=== PATIENT | male | born 1970 | race Caucasian/White ===

== ENCOUNTER 2019-02-25 09:01 | Inpatient (IN) | payer BC ==
[2019-02-25] VITALS (14 sets, daily range): BP systolic 111–147; BP diastolic 68–96
[~2019-02-25] VITALS: Ht 182.9 cm; Wt 99.1 kg
[~2019-02-25 09:01] MED LIST: LISI-334 PO; MECL12.52 PO
--- NOTE | 2019-02-25 10:40 | NUR ---
Patient brought to hospital ICU room 109 via ambulance by carole from [facility] with symptoms of CVA.
--- NOTE | 2019-02-25 11:46 | PDOC2 ---
NEUROLOGY CONSULT Date of Admission Date of Admission DATE: 02/25/19 TIME: 11:46 Reason for Consult Reason for Consult: Stroke Referring Physician Referring Physician: Dr. Sotelo Source Source: Caregiver (), Chart review, Patient History of Present Illness History of Present Illness The patient is a 48-year-old right-handed male with history of hypertension who woke up about 4:30 AM, took a shower, kissed his nolan at 5 AM. Then he was downstairs and came back and was unable to communicate with his . He looked pale and concern. He kept waving with his right hand. He was able to communicate that he wanted her to call 911. The patient was taken to [facility]. He underwent CT of the head, CT angiogram, Alteplace, and then was transferred here, neurology was not consulted during these decision-making. He has not improved in his speech since the alteplase. He is able to communicate that there is no headache. There is no prior history of stroke, seizure, or head injury. He has not been under any particular stress. I see that he had a CT of the head and cervical spine in 2012 regarding dizziness. 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 Full 14-point review of systems is negative. Physical Exam Physical Examination General: Well-developed, well-nourished white male in no acute distress HEENT: Normocephalic and�atraumatic. Temporal arteries�pulsatile and nontender.� Neck: Supple without bruit, no meningismus� Musculoskeletal: Stability:�see neurologic. Gait exam:�see neurologic. Tone:�see neurologic.�Strength:�see neurologic.� Neurological: Mental Status: orientation, memory, attention span/concentration, language, fund of knowledge: expressive aphasia with component of apraxia, follows some commands, but not complex ones. Cranial Nerves:�Pupils equal and reactive to light, extraocular movements are�intact, visual barrientos are full to confrontation. Facial sensation is normal. There is no facial asymmetry. Vestibulo-ocular reflex is intact. Palate elevates and tongue protrudes in midline. All other cranial related problems are negative except as mentioned before.�Reflexes:�2+ and symmetric with flexor plantar responses. Motor:�5/5 strength with normal tone and bulk. Coordination:�Finger-nose finger and vmis-kb-clax testing are normal. Rapid alternating movements and fine finger movements are intact. Gait:�Normal, including tandem. Sensory:�Normal pinprick, vibration, light touch, proprioception.� Vitals VITALS Vital Signs Date Time Temp Pulse Resp B/P (MAP) Pulse Ox O2 Delivery O2 Flow Rate FiO2 02/25/19 11:00 97.9 77 16 135/91 (106) 95 Room Air 97.[address] CODE STROKE HEAD WO History: Slurred speech Comparison: April 18, 2013 MRI brain exam and December 25, 2009 CT head exam Technique: Noncontrast CT imaging was performed of the head. Exposure: One or more of the following individualized dose reduction techniques were utilized for this examination: 1. Automated exposure control 2. Adjustment of the mA and/or kV according to patient size 3. Use of iterative reconstruction technique. Findings: No acute intracranial hyperdense hemorrhage is identified. There is no midline shift or intra-axial mass effect. Ventricular size is within normal limits. There is now focus of low density of the posterior right cerebellum about 1.1 cm in size. There is questionable subtle focus of lower density of the left brianna, difficult to evaluate given artifact in this region. Impression: 1. There is no evidence of acute intracranial hemorrhage. 2. There is focus of lower density of the posterior right cerebellum new since the previous exams. Features are more suggestive of chronic infarct although could be due to late subacute infarct. There is a questionable subtle focus of lower density of the left brianna which could be due to site of more recent ischemia although otherwise difficult to evaluate, better characterized by MRI if clinically needed. Findings discussed with GIOVANNI CHARLES at 02/25/2019 7:02 AM. FOR INTERNAL CODING PURPOSES RESULT CODE: (C) Electronically signed by: Dinorah Pearson MD (02/25/2019 7:04 AM) [facility] DICTATED AND SIGNED BY: DINORAH PEARSON MD DATE: 02/25/19703 CC: GIOVANNI CHARLES DO; RONALD WHITTAKER MD ~ CHEST AP ONLY History: Stroke Comparison: None. Findings: Single view of the chest is submitted. There is no dependent pleural fluid or pneumothorax. Heart size is within normal limits. There is mild perihilar opacity. Impression: 1. No lobar infiltrate. There is mild perihilar opacity possible mild central vascular congestion. Electronically signed by: Dinorah Pearson MD (02/25/2019 7:38 AM) [facility] DICTATED AND SIGNED BY: DINORAH PEARSON MD DATE: 02/25/19737 CC: GIOVANNI CHARLES DO; RONALD WHITTAKER MD ~ CTA head and neck History: Slurred speech, right hand weakness, stroke Technique: After bolus of intravenous contrast, volumetric CT data acquisition was acquired of the head and neck. Multiplanar reconstruction images to include MIP and 3-D reconstruction images are submitted. Exposure: One or more of the following individualized dose reduction techniques were utilized for this examination: 1. Automated exposure control 2. Adjustment of the mA and/or kV according to patient size 3. Use of iterative reconstruction technique. Comparison: Head CT the same day Any determination of stenosis is based on NASCET criteria. CTA head: Findings: There is mild motion. There is some venous contamination. Both vertebral arteries constitute the basilar artery, slightly dominant left vertebral artery. There is visualization of segments of bilateral PICAs, left AICA, bilateral superior cerebellar arteries. Right AICA is not well-visualized. There is patent left posterior communicating artery, hypoplastic left A1 segment is not well-visualized more distally. No significant right posterior communicating artery is visualized. Anterior communicating artery is not clearly identified. There is visualization of segments of the anterior, middle, posterior cerebral arteries bilaterally. No focal filling defect is identified of the larger intracranial vessels. No significant intracranial aneurysm is identified. There is small left maxillary sinus mucous retention cyst. Impression: 1. No focal filling defect is identified of the larger intracranial vessels. Right AICA is not well-visualized on this exam although may be small in caliber. Neck CTA: Findings: There is some motion degradation. Visualized distal ascending thoracic aorta is ectatic about 3.9 cm, not fully evaluated. There is a shared origin of the brachiocephalic and left common carotid arteries. No significant stenosis or dissection flap is identified of the cervical arterial vasculature. There is visualization of the cervical vertebral arteries bilaterally. Impression: 1. Exam is somewhat degraded by motion. There is no convincing dissection flap or stenosis of the cervical arterial vasculature. 2. There is ectatic distal ascending thoracic aorta about 3.9 cm, thoracic aorta not fully evaluated. Assessment/Plan Assessment/Plan Impression: Acute onset of expressive aphasia, also has some apraxia, no motor findings for me although some ataxia was observed in the emergency department. This would localize to a small left frontal infarct. Also consider nonorganic etiologies. Recommendations: Has had CT angiogram, no need to repeat imaging studies of the arteries. MRI of the brain, reasonable to wait until tomorrow morning, 24 hours after alteplase, to also rule out post-alteplace hemorrhage Rehabilitation modalities Aspirin na�ve, will start this tomorrow after hemorrhage ruled out. Also see stroke orders. Discussed with patient and his . Thank you for letting me help with the patient's care. RAUDEL MCKEON MD Feb 25, 2019 11:46
[2019-02-25] MEDS ORDERED: ONDANSETRON PF 4 MG/2 ML VIAL. IV PRN (12:45)
[2019-02-25] MEDS ORDERED: ACETAMINOPHEN 325 MG TABLET. PO PRN (12:45)
[2019-02-25] MEDS ORDERED: LABETALOL 20 MG/4 ML DISP.SYRIN. IVP PRN (12:45)
[2019-02-25] MEDS ORDERED: ACETAMINOPHEN 325 MG SUPP.RECT. PR PRN (12:45)
--- NOTE | 2019-02-25 18:08 | NUR ---
Patient is forming sentences more as the day goes on. He can now ask, "can I go to the bathroom" and "what time are you out" and says "thank you" with very little difficulty.
--- NOTE | 2019-02-25 19:00 | NUR ---
Patient able to speak in sentences with slurred speech and expressive aphasia. When answering questions, patient is unable to verbalize specific words but when asked to choose the correct answer verses another similar word, patient is able to nod his head at the correct answer. Will continue to monitor hourly per Code Stroke protocol (until 0902/26/19) and notify Neuro with any decompensation. Addendum: 02/25/19 at 1919 by FERNANDA LOW RN Amended: Links added.
[2019-02-26] VITALS (14 sets, daily range): BP systolic 104–141; BP diastolic 72–91
[2019-02-26 05:01] LABS: CHOLESTEROL/HDL RATIO 6.3
--- NOTE | 2019-02-26 08:30 | PDOC ---
PROGRESS NOTES Assessment Acute onset of expressive aphasia, also has some apraxia, no motor findings for me although some ataxia was observed in the emergency department. This would localize to a small left frontal infarct. Also consider nonorganic etiologies. Hyperlipidemia Plan Await MRI of the brain Await echo Rehabilitation modalities Start aspirin after hemorrhage ruled out. Transfer to [address] [place] [address] if no bleed Statin Subjective Notes improvement, no pain Objective Vital Signs Date Time Temp Pulse Resp B/P (MAP) Pulse Ox O2 Delivery O2 Flow Rate FiO2 02/26/19 08:00 98.6 75 13 133/84 (100) 97 Room Air 98.6 Intake and Output 02/26/19 06:59 Intake Total 320 ml Output Total 1550 ml Balance -1230 ml Intake Oral 320 ml Output Urine Total 1550 ml PHYSICAL EXAM Alert. Oriented to time, place and person. Still some expressive aphasia, dysnomia PERRL. EOMI. CN: no focal findings. Muscle tone: normal. Muscle strength: 5/5 DTR: 2+ Plantar reflex: flexor Gait: not examined in bed. Sensory exam: no abnormal findings. No cerebellar signs elicited. Review of Relevant I have reviewed the following items svitlana (where applicable) has been applied. Labs Laboratory Tests Test 02/26/19 04:30 Triglycerides Level 172 mg/dL (0-150) Cholesterol Level 209 mg/dL (0-200) LDL Cholesterol, Calculated 142 mg/dL (0-100) VLDL Cholesterol, Calculated 34 mg/dL (0-40) Non-HDL Cholesterol Calculated 176 mg/dL (0-129) HDL Cholesterol 33 mg/dL (40-60) Cholesterol/HDL Ratio 6.3 Laboratory Tests Test 02/26/19 04:30 Triglycerides Level 172 mg/dL (0-150) Cholesterol Level 209 mg/dL (0-200) LDL Cholesterol, Calculated 142 mg/dL (0-100) VLDL Cholesterol, Calculated 34 mg/dL (0-40) Non-HDL Cholesterol Calculated 176 mg/dL (0-129) HDL Cholesterol 33 mg/dL (40-60) Cholesterol/HDL Ratio 6.3 Medications Current Medications Labetalol HCl (Normodyne Iv Push) 10 mg PRN Q10MIN PRN IVP HYPERTENSION; Start 02/25/19 at 12:45 Nicardipine HCl 50 mg/Sodium Chloride 250 ml @ 25 mls/hr CONT PRN PRN IV ELEVATED BP, SEE COMMENTS; Start 02/25/19 at 12:45 Acetaminophen (Tylenol) 650 mg PRN Q6HRS PRN PO MILD PAIN / TEMP; Start 02/25/19 at 12:45 Acetaminophen (Tylenol Supp) 325 mg PRN Q6HRS PRN MD MILD PAIN / TEMP; Start 02/25/19 at 12:45 Ondansetron HCl (Zofran) 4 mg PRN Q6HRS PRN IV NAUSEA/VOMITING; Start 02/25/19 at 12:45 Active Scripts Active Reported Meclizine Hcl 12.5 Mg Tablet 12.5 Mg PO Lisinopril 20 Mg Tablet 20 Mg PO Vitals/I & O Vital Sign - Last 24 Hours 02/25/19 02/25/19 02/25/19 02/25/19 11:00 12:00 13:00 14:00 Temp 97.9 97.9 Pulse 77 80 85 73 Resp 16 16 16 B/P (MAP) 135/91 (106) 138/86 (103) 147/96 (113) 139/89 (106) Pulse Ox 95 96 94 96 O2 Delivery Room Air Room Air Room Air Room Air 02/25/19 02/25/19 02/25/19 02/25/19 15:00 16:00 17:00 18:00 Temp 99.0 99.0 Pulse 69 84 73 78 Resp 16 16 16 16 B/P (MAP) 143/88 (106) 138/86 (103) 136/81 (99) 140/79 (99) Pulse Ox 96 97 98 98 O2 Delivery Room Air Room Air Room Air Room Air 02/25/19 02/25/19 02/25/19 02/25/19 19:00 20:00 20:00 21:00 Temp 97.9 97.9 Pulse 76 72 70 Resp 18 13 14 B/P (MAP) 144/89 (107) 139/81 (100) 114/80 (91) Pulse Ox 97 97 94 O2 Delivery Room Air Room Air Room Air Room Air 02/25/19 02/25/19 02/25/19 02/25/19 22:00 23:00 23:59 23:59 Temp 98.7 98.7 Pulse 65 65 67 Resp 14 14 14 B/P (MAP) 117/78 (91) 111/68 (82) 139/78 (98) Pulse Ox 94 95 96 O2 Delivery Room Air Room Air Room Air Room Air 02/26/19 02/26/19 02/26/19 02/26/19 01:00 02:00 03:00 04:00 Pulse 68 66 71 Resp 14 12 14 B/P (MAP) 141/86 (104) 116/83 (94) 104/72 (83) Pulse Ox 96 96 97 O2 Delivery Room Air Room Air Room Air Room Air 02/26/19 02/26/19 02/26/19 02/26/19 04:00 05:00 06:00 07:00 Temp 98.0 98.0 Pulse 69 67 69 70 Resp 16 16 16 20 B/P (MAP) 119/85 (96) 138/87 (104) 127/81 (96) 120/76 (91) Pulse Ox 97 100 97 98 O2 Delivery Room Air Room Air Room Air Room Air 02/26/19 02/26/19 07:57 08:00 Temp 98.6 98.6 Pulse 75 Resp 13 B/P (MAP) 133/84 (100) Pulse Ox 97 O2 Delivery Room Air Room Air Intake and Output 02/25/19 02/25/19 02/26/19 14:59 22:59 06:59 Intake Total 20 ml 200 ml 100 ml Output Total 0 ml 750 ml 800 ml Balance 20 ml -550 ml -700 ml RAUDEL MCKEON MD Feb 26, 2019 08:30
--- NOTE | 2019-02-26 09:15 | HP ---
ADMIT DATE: 02/25/2019 HISTORY OF PRESENT ILLNESS: The patient is a 48-year-old male patient who was brought to the Emergency Room of [facility] via emergency medical service personnel with a code stroke. He apparently last known well was the night before at 9:30 p.m. He woke up at around 4:30 a.m., took a shower and got ready for work. He kissed his nolan around 5:00 a.m. At that time, he was talking without difficulty. He went downstairs and within several minutes he came back upstairs and turned on the bedroom light. The patient's spouse asked him what was going on and he was unable to speak to her. She stated that he looked pale and concerned. He was making repetitive motion with his hand and she asked him if he wanted her to 911 and he nodded his head yes. The patient has been unable to speak since that time. He was unable to answer questions for emergency medical service personnel; however, he was following direction. He was found to have right lower facial symmetry and decreased hand strength on the right side. By the time he arrived to the Emergency Room, he was unable to speak. He was alert and following commands. He was evaluated in the Emergency Room. His EKG showed that he was in sinus rhythm at 83 beats per minute, normal axis, no ST segment elevation. He had a CT scan of the head without contrast, which showed that there is no acute intracranial hyperdense hemorrhage identified. There is no midline shift or intra-axial mass effect. Ventricular size within normal limits. There is now focus of lower density of the posterior right cerebellum, about 1.1 cm in size. There is questionable subtle focus of lower density of the left bones, difficult to evaluate given artifact in this region. Chest x-ray showed there is no dependent pleural effusion or pneumothorax, heart size within normal limits. There is mild perihilar opacity. While in the Emergency Room, he also underwent CT angio of the head and neck, which basically showed no focal filling defects identified of the larger intracranial vessels. Right anterior communicating artery is not clearly identified due to visualization segmented anterior, middle and posterior cerebral arteries bilaterally. No focal filling defect is identified and no significant intracranial aneurysm is identified. He has small left maxillary sinus mucous retention cyst. CT angio of the neck showed that there is no convincing dissection flap or stenosis, cervical arterial vasculature is ectatic, ascending thoracic aorta about 3.9 cm, thoracic aorta not fully evaluated. Apparently, as he arrived within the window for TPA and his CT scan is negative, his initial NIH scale was 8 with significant aphasia and has no history of hemorrhagic stroke, has no history of bleeding disorder, no recent surgery. He is not on any blood thinners or antiplatelets. He was apparently treated with TPA and as per protocol the patient was transferred to [facility] ICU for further evaluation and to consult the neurologist. PAST MEDICAL HISTORY: Significant for hypertension. However, he denied any other medical problems. PAST SURGICAL HISTORY: Significant for a right ankle fracture status post open reduction and internal fixation. He also apparently has obstructive sleep apnea for which he underwent uvulopalatopharyngoplasty. ALLERGIES: According to him, he has no known drug allergies. MEDICATIONS: He apparently was on lisinopril 20 mg once a day and meclizine 12.5 mg once a day. FAMILY HISTORY: He has one older brother and one younger sister, both healthy. His mother is alive and has multiple stents in her heart. His father is alive and healthy. SOCIAL HISTORY: He is , has one daughter and a son. He never smoked. Drinks alcohol occasionally. He works as an industrial electrician journeyman. PHYSICAL EXAMINATION: GENERAL: On arrival to the Emergency Room, he looked well and was clearly in no apparent respiratory distress. No pallor, jaundice, cyanosis or thyromegaly. No jugular venous distention. No lower limb edema. VITAL SIGNS: His heart rate was 65, blood pressure 117/78, temperature was 98.7, respiratory rate was 14, and oxygen saturation was 96%. HEAD, EYES, EARS, NOSE AND THROAT: Normocephalic, atraumatic. NECK: Supple. HEART: Showed normal first and second heart sounds. No gallop, rub or murmur. CHEST: Clear to auscultation. No crepitation or rhonchi. ABDOMEN: Distended, soft, nontender. No guarding or rigidity. No organomegaly. Hernial orifice intact. Bowel sounds normal. NEUROLOGIC: He apparently was aphasic. Initially, when he arrived to the Emergency Room has right lower facial nerve weakness as well as right upper extremity weakness. Otherwise, cranial nerves are intact. He moves extremities without difficulty. He was unable to talk, but follows command. LABORATORY DATA: His lab work while at the Emergency Room of [facility] showed that his white cell count was 16,300, hemoglobin 15, hematocrit 44, MCV 191, and platelet count 243,000. His chemistry showed a serum sodium 139, potassium 3.9, chloride 103, bicarbonate 25, anion gap of 11, BUN 25, creatinine 1.4, estimated GFR was 54 mL per minute. Glucose 167, calcium 9. Total bilirubin, AST, ALT, alkaline phosphatase were normal. Total protein was 7.3, albumin 4.5. His prothrombin time, INR and aPTT were normal. Tox screen was negative. ASSESSMENT AND PLAN: In summary, this is a 48-year-old male patient who was transferred to [facility] ICU as he had cerebral infarction, new thrombosis of unspecified precerebral artery. He has received TPA and as per protocol he was transferred to [facility] to consult the neurologist and to repeat an MRI after receiving TPA to rule out the possibility of post-TPA hemorrhage. GREER NOWAK MD DR: BOB/iron JOB#: [id number] / [id number]
--- NOTE | 2019-02-26 09:18 | PN ---
DATE: SUBJECTIVE: The patient is resting, slightly propped up in bed, no apparent distress. He is awake, alert, responding appropriately. He is able to talk, although he continued to have occasional episodes of difficulty finding words; however, he has been able to move his extremities without difficulty. He was seen by Dr. Padgett, who recommended doing an MRI and if it is negative, he will be able to transfer to the floor to start the process of rehabilitation. He will be started on aspirin after the MRI if it did not show any evidence of bleeding. OBJECTIVE: GENERAL: When I saw him this morning, he looked well and was clearly in no apparent respiratory distress. VITAL SIGNS: Her heart rate was 75, blood pressure was 133/84, temperature was 98.6, respiratory rate was 18 and oxygen saturation was 97%. HEAD, EYES, EARS, NOSE AND THROAT: Showed normocephalic, atraumatic. NECK: Supple. No pallor, jaundice, cyanosis or thyromegaly. No jugular venous distension. . HEART: Showed normal first and second heart sounds. No gallop or murmur. CHEST: Clear to auscultation. No crepitation or rhonchi. NEUROLOGIC: He is awake, alert, responding appropriately. All his cranial nerves are intact. He moves extremities without difficulty. No lower limb edema. LABORATORY DATA: His fasting lipid profile showed serum triglycerides 172. Total cholesterol was 129, LDL was 142, VLDL was 34, and HDL was 33. The ratio was 6.3. ASSESSMENT AND PLAN: In summary, this is a 48-year-old male patient who presented with acute expressive aphasia and some apraxia and apparently has also some ataxia observed in the Emergency Room. He has hyperlipidemia and history of hypertension before. He will have an MRI done this morning and if there is no evidence of bleeding, we will start on aspirin, continue with statin as well as continue with his lisinopril as well meclizine. GREER NOWAK MD DR: BOB/iron JOB#: [id number] / [id number]
--- NOTE | 2019-02-26 11:09 | NUR ---
SS following for discharge planning. SS reviewed pt chart. Pt is from home with spouse and is currently on room air. No discharge needs noted at this time. SS will continue to follow for discharge planning.
--- NOTE | 2019-02-26 11:31 | RAD ---
BRAIN W/O CONTRAST History: Posterior PA. Technique: Multiplanar, multi sequential MR imaging was performed of the brain without contrast. Comparison: Head CT February 25, 2019. Findings: Acute left MCA territory infarct involving the left lateral frontal lobe and perisylvian region. Mild local mass effect. No midline shift. There is evidence of petechial hemorrhaging. Chronic bilateral small cerebellar infarcts. No hydrocephalus. Minimal foci of T2/FLAIR hyperintensity within the hemispheric white matter, most often due to chronic microvascular ischemia. Imaged orbits are unremarkable. Small left maxillary sinus anteriorly is retention cyst. Left posterior maxillary sinus mucous retention cyst or polyp. Mastoid air cells are clear. Impression: 1. Acute left MCA territory infarct with petechial hemorrhage. 2. Chronic bilateral small cerebellar infarcts. 3. Left maxillary sinus disease. FOR INTERNAL CODING PURPOSES Critical result: Findings discussed with patient's nurse Cherelle at 02/26/2019 11:25 AM. RESULT CODE: (C) Electronically signed by: Roger Vieira DO (02/26/2019 11:28 AM) [id number]
--- NOTE | 2019-02-26 11:48 | CARD ---
MR#: [id number] Date of Study: 02/26/2019 Ordering Physician: RAUDEL MCKEON, Referring Physician: RAUDEL MCKEON, Tech: Avelina Sanchez [facility] APPROVED REPORT EXAM: Two-dimensional and M-mode echocardiogram with Doppler and color Doppler. Other Information Quality : AverageHR: 70bpm Rhythm : NSR INDICATION CVA/TIA 2D DIMENSIONS RVDd3.1 (2.9-3.5cm)Left Atrium(2D)3.4 (1.6-4.0cm) IVSd1.2 (0.7-1.1cm)Aortic Root(2D)3.3 (2.0-3.7cm) LVDd4.0 (3.9-5.9cm)LVOT Diameter2.1 (1.8-2.4cm) PWd1.0 (0.7-1.1cm)LVDs2.6 (2.5-4.0cm) FS (%) 34.7 %SV45.4 ml LVEF(%)64.4 (>50%) M-Mode DIMENSIONS Left Atrium(MM)3.46 (2.5-4.0cm)Aortic Root3.38 (2.2-3.7cm) Aortic Valve AoV Peak Guille.101.3cm/sAoV VTI20.0cm AO Peak GR.4.1mmHgLVOT VTI 17.06cm AO Mean GR.3mmHgAVA (VTI)2.90cm2 Mitral Valve MV E Qdxgzmjg70.0cm/sMV DECEL [id number] MV A Lelehhzg05.0cm/sE/A Ratio0.7 MV A [id number] TDI Lateral E' P. V12.16cm/sE/Lateral E'4.4 LEFT VENTRICLE The left ventricle is normal size. There is mild concentric left ventricular hypertrophy. The left ve ntricular systolic function is normal and the ejection fraction is within normal range. The Ejection Fraction is 60-65%. There is normal LV segmental wall motion. Transmitral Doppler flow pattern is Gra de I-abnormal relaxation pattern. RIGHT VENTRICLE The right ventricle is normal size. There is normal right ventricular wall thickness. The right ventr icular systolic function is normal. ATRIA The left atrium size is normal. The right atrium size is normal. Non-diagnostic agitated saline contr ast study. Not well visualized. AORTIC VALVE The aortic valve is normal in structure and function. The aortic valve is trileaflet. Doppler and Col or Flow revealed no significant aortic regurgitation. There is no significant aortic valvular stenosi s. There is no aortic valvular vegetation. MITRAL VALVE The mitral valve is normal in structure and function. There is no evidence of mitral valve prolapse. There is no mitral valve stenosis. Doppler and Color Flow revealed no mitral valve regurgitation note d. TRICUSPID VALVE The tricuspid valve is normal in structure and function. Doppler and Color Flow revealed no tricuspid valve regurgitation noted. There is no tricuspid valve prolapse or vegetation. There is no tricuspid valve stenosis. PULMONIC VALVE The pulmonic valve is not well visualized. GREAT VESSELS The aortic root is normal in size. The ascending aorta is normal in size. The IVC is normal in size a nd collapses >50% with inspiration. PERICARDIAL EFFUSION There is no evidence of significant pericardial effusion. Critical Notification Critical Value: No <Conclusion> The left ventricular systolic function is normal and the ejection fraction is within normal range. Th e Ejection Fraction is 60-65%. There is normal LV segmental wall motion. Non-diagnostic agitated saline contrast study. Not well visualized. Signed by : Rico Diane, Electronically Approved : 02/26/2019 11:48:16
--- NOTE | 2019-02-26 15:42 | PDOC2 ---
RAYMUNDO HOGAN CLERK TO JUSTICE 02/26/19 1542: CARDIAC CONSULT DATE OF CONSULT Date of Consult DATE: 02/26/19 TIME: 15:32 REASON FOR CONSULT Reason for Consult: Cryptogenic CVA REFERRING PHYSICIAN Referring Physician: Dayron SOURCE Source: Chart review, Patient HISTORY OF PRESENT ILLNESS HISTORY OF PRESENT ILLNESS This is a pleasant 48 yo male admitted for complains of stroke symptoms. Initially he was in [place] ED and transferred to [facility]. Yesterday morning he was gong to work and was at the gas station and was trying to pay with his credit card but could not swipe the card citing that he could not move his right arm. He then drove himself back [place] and was noted by his that he could not speak and also noted with right facial droop. After further imaging it was confirmed that he had a stroke. Presently he had his right arm strength back as well as his speech and no facial asymmetry. In the last 5 yrs he has been having vertigo. He told me that he actually has been seeing Dr. Horton at most likely for this reason. He denies having any past CAD, arrhythmias nor stroke or any autoimmune family hx nor any clotting disorders. He does have HTN and takes med for it but no statin nor ASA. 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 Denies any chest pain, SOA. No STOUT, palpitations. PAST MEDICAL HISTORY Cardiovascular: HTN, Hyperlipidemia Pulmonary: Other (BARB) CENTRAL NERVOUS SYSTEM: Other (No pertinent history) GI: No pertinent hx Heme/Onc: No pertinent hx Hepatobiliary: No pertinent hx Psych: No pertinent hx Musculoskeletal: Other (obese) Rheumatologic: No pertinent hx Infectious disease: No pertinent hx ENT: No pertinent hx Renal/: No pertinent hx Endocrine: No pertinent hx Dermatology: No pertinent hx PAST SURGICAL HISTORY Past Surgical History: Other (right ankle repair) FAMILY HISTORY Family History: Coronary Artery Disease (mother) SOCIAL HISTORY Smoke: No ALCOHOL: none Drugs: None Lives: with Family ALLERGIES ALLERGIES: Coded Allergies: No Known Drug Allergies (Unverified , 05/28/13) ROS Review of System 14 point ROS evaluated with pertinent positives noted per HPI PHYSICAL EXAM General: Alert, Oriented X3, Cooperative, No acute distress HEENT: Atraumatic, Mucous membr. moist/pink Lungs: Clear to auscultation, Normal air movement Heart: Regular rate (SR), Normal S1, Normal S2, No murmurs Abdomen: Soft, No tenderness Extremities: No cyanosis, No edema Skin: No breakdown, No significant lesion Neuro: Normal speech, Sensation intact Psych/Mental Status: Mental status NL, Mood NL MUSCULOSKELETAL: Osteoarthritic changes both hands VITALS/I&O VITALS/I&O: Vital Signs Date Time Temp Pulse Resp B/P (MAP) Pulse Ox O2 Delivery O2 Flow Rate FiO2 02/26/19 15:21 97.4 75 20 131/76 (94) 96 Room Air 97.4 I & O 02/25/19 02/25/19 02/26/19 15:00 23:00 07:00 Intake Total 20 ml 200 ml 100 ml Output Total 750 ml 0 ml 800 ml Balance -730 ml 200 ml -700 ml LABS Lab: Laboratory Tests Test 02/26/19 04:30 Triglycerides Level 172 mg/dL (0-150) H Cholesterol Level 209 mg/dL (0-200) H LDL Cholesterol, Calculated 142 mg/dL (0-100) H VLDL Cholesterol, Calculated 34 mg/dL (0-40) Non-HDL Cholesterol Calculated 176 mg/dL (0-129) H HDL Cholesterol 33 mg/dL (40-60) L Cholesterol/HDL Ratio 6.3 ASSESSMENT/PLAN ASSESSMENT/PLAN 1. 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 HTN: controlled 3. HLP 4. Hx of BARB: surgically corrected 5. Obesity Recommendations 1. ASA per neurology 2. Start on statin 3. Continue BP control 4. ESMER tomorrow at 8 AM, risks and benefits discussed and agreeable to proceed. 5. If above is unremarkable then will consider for MCOT. Will rule out cardioe mbolic source 6. Check TSH ARTUR CH MD 02/26/192043: CARDIAC CONSULT ASSESSMENT/PLAN ASSESSMENT/PLAN Patient seen and examined. Agree with [facility]'s assessment and plan. Agree with ESMER for definitive evaluation for cryptogenic stroke 2D echo showed normal LVF Neurology following Thank you for your consultation RAYMUNDO HOGAN APRN Feb 26, 2019 15:42 ARTUR CH MD Feb 26, 2019 20:44
[2019-02-26] MEDS ORDERED: ATORVASTATIN CALCIUM 10 MG TABLET. PO SCH (21:00)
[2019-02-26] MEDS ORDERED: ATORVASTATIN CALCIUM 20 MG TABLET PO SCH (21:00)
[2019-02-27] VITALS (9 sets, daily range): BP systolic 109–165; BP diastolic 53–98
[2019-02-27 05:10] LABS: BASO # 0.1 x10^3/uL (0.0-0.2); BASO % 1 % (0-3); EOS % 0 % (0-3); HEMATOCRIT 43.7 % (39.0-53.0); LYMPH # 2.5 x10^3/uL (1.0-4.8); LYMPH % 28 % (24-48); MEAN CORPUSCULAR HEMOGLOBIN 31 pg (25-35); MEAN CORPUSCULAR HGB CONC 34 g/dL (31-37); MEAN CORPUSCULAR VOLUME 90 fL (79-100); MONO # 0.8 x10^3/uL (0.0-1.1); MONO % 9 % (0-9); NEUT # 5.7 x10^3/uL (1.8-7.7); NEUT % 62 % (31-73); PLATELET COUNT 219 x10^3/uL (140-400); RED BLOOD COUNT 4.83 x10^6/uL (4.30-5.70); WHITE BLOOD COUNT 9.1 x10^3/uL (4.0-11.0)
[2019-02-27 05:46] LABS: ALBUMIN/GLOBULIN RATIO 1.2 (1.0-1.7); CALCIUM 9.1 mg/dL (8.5-10.1); CREATININE 1.3 mg/dL (0.7-1.3); GFR 58.9; POTASSIUM 4.1 mmol/L (3.5-5.1); TOTAL BILIRUBIN 0.7 mg/dL (0.2-1.0); TOTAL PROTEIN 7.4 g/dL (6.4-8.2)
[2019-02-27] MEDS ORDERED: LIDOCAINE 2% VISCOUS 15 ML SOLUTION. SWSW ONE (07:00)
[2019-02-27] MEDS ORDERED: LIDOCAINE 2% TOPICAL JELLY 30GM TUBE. TP ONE (07:00)
[2019-02-27] MEDS ORDERED: BENZOCAINE ONE 20% MUCOSAL SPRAY. MM (07:00)
[2019-02-27] MEDS ORDERED: IV RINGERS,LACTATED 1000ML 1,000 ML IV SCH (07:14)
[2019-02-27] MEDS ORDERED: PROCHLORPERAZINE 10 MG/2 ML VIAL. IV PRN (07:15)
[2019-02-27] MEDS ORDERED: MORPHINE SULFATE 2 MG/ML VIAL. IV PRN (07:15)
[2019-02-27] MEDS ORDERED: HYDROmorphone 2 MG/ML VIAL IV PRN (07:15)
[2019-02-27] MEDS ORDERED: ONDANSETRON PF 4 MG/2 ML VIAL. IV PRN (07:15)
[2019-02-27] MEDS ORDERED: fentaNYL PF VIAL 100 MCG/2 ML VIAL IV PRN ×2 (07:15)
[2019-02-27] MEDS ORDERED: PROPOFOL 20 ML IV ONE (07:51)
[2019-02-27] MEDS ORDERED: LIDOCAINE 2% PF 5 ML VIAL. ONE (07:51)
--- NOTE | 2019-02-27 08:44 | PDOC ---
PROGRESS NOTES Assessment Left frontal infarct, aphasia, no motor problems, likely embolic Small amount of petechial hemorrhage, status-post alteplase Hyperlipidemia Plan Await ESMER I delayed starting aspirin because of petechial hemorrhage, but will do so today Rehabilitation modalities, physical therapy does not leave he needs outpatient treatment, occupational and speech therapy do recommend outpatient treatment Statin Okay for discharge later today Follow-up with me in 2 months Subjective no complaints Objective Vital Signs Date Time Temp Pulse Resp B/P (MAP) Pulse Ox O2 Delivery O2 Flow Rate FiO2 02/27/19 07:10 97.4 75 15 165/87 93 Room Air 97.4 Intake and Output 02/27/19 06:59 Intake Total 0 ml Balance 0 ml Intake Oral 0 ml PHYSICAL EXAM Still groggy from ESMER PERRL. EOMI. CN: no focal findings. Muscle tone: normal. Muscle strength: moves all extremities DTR: 2+ Plantar reflex: flexor Gait: not examined in bed. Sensory exam: no abnormal findings. No cerebellar signs elicited. Review of Relevant I have reviewed the following items svitlana (where applicable) has been applied. Labs Laboratory Tests Test 02/26/19 04:30 02/27/19 04:20 Triglycerides Level 172 mg/dL (0-150) Cholesterol Level 209 mg/dL (0-200) LDL Cholesterol, Calculated 142 mg/dL (0-100) VLDL Cholesterol, Calculated 34 mg/dL (0-40) Non-HDL Cholesterol Calculated 176 mg/dL (0-129) HDL Cholesterol 33 mg/dL (40-60) Cholesterol/HDL Ratio 6.3 Thyroid Stimulating Hormone (TSH) 8.369 uIU/mL (0.358-3.74) White Blood Count 9.1 x10^3/uL (4.0-11.0) Red Blood Count 4.83 x10^6/uL (4.30-5.70) Hemoglobin 15.0 g/dL (13.0-17.5) Hematocrit 43.7 % (39.0-53.0) Mean Corpuscular Volume 90 fL (79-100) Mean Corpuscular Hemoglobin 31 pg (25-35) Mean Corpuscular Hemoglobin Concent 34 g/dL (31-37) Red Cell Distribution Width 14.0 % (11.5-14.5) Platelet Count 219 x10^3/uL (140-400) Neutrophils (%) (Auto) 62 % (31-73) Lymphocytes (%) (Auto) 28 % (24-48) Monocytes (%) (Auto) 9 % (0-9) Eosinophils (%) (Auto) 0 % (0-3) Basophils (%) (Auto) 1 % (0-3) Neutrophils # (Auto) 5.7 x10^3/uL (1.8-7.7) Lymphocytes # (Auto) 2.5 x10^3/uL (1.0-4.8) Monocytes # (Auto) 0.8 x10^3/uL (0.0-1.1) Eosinophils # (Auto) 0.0 x10^3/uL (0.0-0.7) Basophils # (Auto) 0.1 x10^3/uL (0.0-0.2) Sodium Level 140 mmol/L (136-145) Potassium Level 4.1 mmol/L (3.5-5.1) Chloride Level 103 mmol/L (98-107) Carbon Dioxide Level 26 mmol/L (21-32) Anion Gap 11 (6-14) Blood Urea Nitrogen 19 mg/dL (8-26) Creatinine 1.3 mg/dL (0.7-1.3) Estimated GFR (Cockcroft-Gault) 58.9 BUN/Creatinine Ratio 15 (6-20) Glucose Level 123 mg/dL (70-99) Calcium Level 9.1 mg/dL (8.5-10.1) Total Bilirubin 0.7 mg/dL (0.2-1.0) Aspartate Amino Transf (AST/SGOT) 19 U/L (15-37) Alanine Aminotransferase (ALT/SGPT) 31 U/L (16-63) Alkaline Phosphatase 64 U/L (46-116) Total Protein 7.4 g/dL (6.4-8.2) Albumin 4.0 g/dL (3.4-5.0) Albumin/Globulin Ratio 1.2 (1.0-1.7) Free Thyroxine 0.70 ng/dL (0.76-1.46) Laboratory Tests Test 02/27/19 04:20 White Blood Count 9.1 x10^3/uL (4.0-11.0) Red Blood Count 4.83 x10^6/uL (4.30-5.70) Hemoglobin 15.0 g/dL (13.0-17.5) Hematocrit 43.7 % (39.0-53.0) Mean Corpuscular Volume 90 fL (79-100) Mean Corpuscular Hemoglobin 31 pg (25-35) Mean Corpuscular Hemoglobin Concent 34 g/dL (31-37) Red Cell Distribution Width 14.0 % (11.5-14.5) Platelet Count 219 x10^3/uL (140-400) Neutrophils (%) (Auto) 62 % (31-73) Lymphocytes (%) (Auto) 28 % (24-48) Monocytes (%) (Auto) 9 % (0-9) Eosinophils (%) (Auto) 0 % (0-3) Basophils (%) (Auto) 1 % (0-3) Neutrophils # (Auto) 5.7 x10^3/uL (1.8-7.7) Lymphocytes # (Auto) 2.5 x10^3/uL (1.0-4.8) Monocytes # (Auto) 0.8 x10^3/uL (0.0-1.1) Eosinophils # (Auto) 0.0 x10^3/uL (0.0-0.7) Basophils # (Auto) 0.1 x10^3/uL (0.0-0.2) Sodium Level 140 mmol/L (136-145) Potassium Level 4.1 mmol/L (3.5-5.1) Chloride Level 103 mmol/L (98-107) Carbon Dioxide Level 26 mmol/L (21-32) Anion Gap 11 (6-14) Blood Urea Nitrogen 19 mg/dL (8-26) Creatinine 1.3 mg/dL (0.7-1.3) Estimated GFR (Cockcroft-Gault) 58.9 BUN/Creatinine Ratio 15 (6-20) Glucose Level 123 mg/dL (70-99) Calcium Level 9.1 mg/dL (8.5-10.1) Total Bilirubin 0.7 mg/dL (0.2-1.0) Aspartate Amino Transf (AST/SGOT) 19 U/L (15-37) Alanine Aminotransferase (ALT/SGPT) 31 U/L (16-63) Alkaline Phosphatase 64 U/L (46-116) Total Protein 7.4 g/dL (6.4-8.2) Albumin 4.0 g/dL (3.4-5.0) Albumin/Globulin Ratio 1.2 (1.0-1.7) Free Thyroxine 0.70 ng/dL (0.76-1.46) Microbiology 02/25/19 Blood Culture - Preliminary, Resulted NO GROWTH AFTER 1 DAY Medications Current Medications Labetalol HCl (Normodyne Iv Push) 10 mg PRN Q10MIN PRN IVP HYPERTENSION; Start 02/25/19 at 12:45 Nicardipine HCl 50 mg/Sodium Chloride 250 ml @ 25 mls/hr CONT PRN PRN IV SEE I/O RECORD; Start 02/25/19 at 12:45 Acetaminophen (Tylenol) 650 mg PRN Q6HRS PRN PO MILD PAIN / TEMP; Start 02/25/19 at 12:45 Acetaminophen (Tylenol Supp) 325 mg PRN Q6HRS PRN KS MILD PAIN / TEMP; Start 02/25/19 at 12:45 Ondansetron HCl (Zofran) 4 mg PRN Q6HRS PRN IV NAUSEA/VOMITING; Start 02/25/19 at 12:45 Atorvastatin Calcium (Lipitor) 10 mg QHS PO ; Start 02/26/19 at 21:00; Stop 02/26/19 at 16:35; Status DC Atorvastatin Calcium (Lipitor) 20 mg QHS PO Last administered on 02/26/19at 21:12; Start 02/26/19 at 21:00 Lidocaine HCl (Xylocaine 2% Topical 30gm Tube) 1 shilo 1X ONCE TP Last administered on 02/27/19at 07:42; Start 02/27/19 at 07:00; Stop 02/27/19 at 07:01; Status DC Lidocaine HCl (Viscous Lidocaine) 15 ml 1X ONCE SWSW Last administered on 02/27/19at 07:42; Start 02/27/19 at 07:00; Stop 02/27/19 at 07:01; Status DC Benzocaine (Hurricaine One) 2 spray 1X ONCE MM Last administered on 02/27/19at 07:42; Start 02/27/19 at 07:00; Stop 02/27/19 at 07:01; Status DC Ondansetron HCl (Zofran) 4 mg PRN Q6HRS PRN IV NAUSEA/VOMITING; Start 02/27/19 at 07:15; Stop 02/28/19 at 07:14 Fentanyl Citrate (Fentanyl 2ml Vial) 25 mcg PRN Q5MIN PRN IV MILD PAIN 1-3; Start 02/27/19 at 07:15; Stop 02/28/19 at 07:14 Fentanyl Citrate (Fentanyl 2ml Vial) 50 mcg PRN Q5MIN PRN IV MODERATE TO SEVERE PAIN; Start 02/27/19 at 07:15; Stop 02/28/19 at 07:14 Morphine Sulfate (Morphine Sulfate) 1 mg PRN Q10MIN PRN IV SEVERE PAIN 7-10; Start 02/27/19 at 07:15; Stop 02/28/19 at 07:14 Ringer's Solution 1,000 ml @ 30 mls/hr Q24H IV Last administered on 02/27/19at 07:41; Start 02/27/19 at 07:14; Stop 02/27/19 at 19:13 Hydromorphone HCl (Dilaudid) 0.5 mg PRN Q10MIN PRN IV SEV PAIN, Second choice; Start 02/27/19 at 07:15; Stop 02/28/19 at 07:14 Prochlorperazine Edisylate (Compazine) 5 mg PACU PRN PRN IV NAUSEA, MRX1; Start 02/27/19 at 07:15; Stop 02/28/19 at 07:14 Propofol 40 ml @ As Directed STK-MED ONCE IV ; Start 02/27/19 at 07:51; Stop 02/27/19 at 07:52; Status DC Lidocaine HCl (Lidocaine Pf 2% Vial) 5 ml STK-MED ONCE .ROUTE ; Start 02/27/19 at 07:51; Stop 02/27/19 at 07:52; Status DC Active Scripts Active Reported Meclizine Hcl 12.5 Mg Tablet 12.5 Mg PO Lisinopril 20 Mg Tablet 20 Mg PO Vitals/I & O Vital Sign - Last 24 Hours 02/26/19 02/26/19 02/26/19 02/26/19 09:00 10:00 11:00 15:21 Temp 98.9 97.4 98.9 97.4 Pulse 68 70 78 75 Resp 15 18 18 20 B/P (MAP) 133/85 (101) 119/79 (92) 123/83 (96) 131/76 (94) Pulse Ox 98 94 97 96 O2 Delivery Room Air Room Air Room Air Room Air 02/26/19 02/26/19 02/26/19 02/27/19 19:00 20:00 23:00 03:00 Temp 98.0 98.2 98.5 98.0 98.2 98.5 Pulse 76 71 75 Resp 16 16 16 B/P (MAP) 139/87 (104) 135/91 (106) 138/87 (104) Pulse Ox 95 94 93 O2 Delivery Room Air Room Air Room Air Room Air 02/27/19 07:10 Temp 97.4 97.4 Pulse 75 Resp 15 B/P (MAP) 165/87 Pulse Ox 93 O2 Delivery Room Air l Intake and Output 02/26/19 02/26/19 02/27/19 14:59 22:59 06:59 Intake Total 0 ml 0 ml Balance 0 ml 0 ml Images BRAIN W/O CONTRAST History: Posterior PA. Technique: Multiplanar, multi sequential MR imaging was performed of the brain without contrast. Comparison: Head CT February 25, 2019. Findings: Acute left MCA territory infarct involving the left lateral frontal lobe and perisylvian region. Mild local mass effect. No midline shift. There is evidence of petechial hemorrhaging. Chronic bilateral small cerebellar infarcts. No hydrocephalus. Minimal foci of T2/FLAIR hyperintensity within the hemispheric white matter, most often due to chronic microvascular ischemia. Imaged orbits are unremarkable. Small left maxillary sinus anteriorly is retention cyst. Left posterior maxillary sinus mucous retention cyst or polyp. Mastoid air cells are clear. Impression: 1. Acute left MCA territory infarct with petechial hemorrhage. 2. Chronic bilateral small cerebellar infarcts. 3. Left maxillary sinus disease. Echo: LEFT VENTRICLE The left ventricle is normal size. There is mild concentric left ventricular hypertrophy. The left ventricular systolic function is normal and the ejection fraction is within normal range. The Ejection Fraction is 60-65%. There is normal LV segmental wall motion. Transmitral Doppler flow pattern is Grade I- abnormal relaxation pattern. RIGHT VENTRICLE The right ventricle is normal size. There is normal right ventricular wall thickness. The right ventricular systolic function is normal. ATRIA The left atrium size is normal. The right atrium size is normal. Non-diagnostic agitated saline contrast study. Not well visualized. AORTIC VALVE The aortic valve is normal in structure and function. The aortic valve is trileaflet. Doppler and Color Flow revealed no significant aortic regurgitation. There is no significant aortic valvular stenosis. There is no aortic valvular vegetation. MITRAL VALVE The mitral valve is normal in structure and function. There is no evidence of mitral valve prolapse. There is no mitral valve stenosis. Doppler and Color Flow revealed no mitral valve regurgitation noted. TRICUSPID VALVE The tricuspid valve is normal in structure and function. Doppler and Color Flow revealed no tricuspid valve regurgitation noted. There is no tricuspid valve prolapse or vegetation. There is no tricuspid valve stenosis. PULMONIC VALVE The pulmonic valve is not well visualized. GREAT VESSELS The aortic root is normal in size. The ascending aorta is normal in size. The IVC is normal in size and collapses >50% with inspiration. PERICARDIAL EFFUSION There is no evidence of significant pericardial effusion. Critical Notification Critical Value: No <Conclusion> The left ventricular systolic function is normal and the ejection fraction is within normal range. The Ejection Fraction is 60-65%. There is normal LV segmental wall motion. Non-diagnostic agitated saline contrast study. Not well visualized. RAUDEL MCKEON MD Feb 27, 2019 08:44
[2019-02-27] MEDS ORDERED: ASPIRIN 325 MG TABLET PO SCH (09:00)
[2019-02-27] MEDS ORDERED: ASPI325T8 PO (10:59)
[2019-02-27] MEDS ORDERED: ATOR20TA58 PO (10:59)
--- NOTE | 2019-02-27 11:20 | NUR ---
SW consulted for OP OT and ST. Spoke with pt and pt's - SW was unable to find OT and ST in [place]. Orders faxed to [facility] OP therapy department and they will contact pt in the next 48 hours. Pt and pt's notified, agreeable with plans. Discussed with RN and Physician.
--- NOTE | 2019-02-27 15:03 | CARD ---
MR#: [id number] Date of Study: 02/27/2019 Ordering Physician: RAYMUNDO HOGAN, Referring Physician: RAYMUNDO HOGAN, Tech: Avelina Sanchez RDCS APPROVED REPORT EXAM: Transesophageal echocardiogram with color flow Doppler. INDICATION CVA/TIA Echo Enhancing Agent Indication: Rule Out Septal Defect Agent/Amount Used: Agitated Saline 8mL Reason For Test : Rule out cardiac source of emboli. PROCEDURE After obtaining informed consent, patient underwent transesophageal echo in the PACU. Type of Sedation : General Anesthesia Sedation was administered by Anesthesia. Sedation was achieved with Propofol 170mg intravenously. Echo enhancement indication: R/O Septal defect. Throughout the procedure, the blood pressure, pulse oximetry, cardiac rhythm, and rate were monitored . LEFT VENTRICLE The left ventricle is normal size. There is normal left ventricular wall thickness. The left ventricu lar systolic function is normal. The Ejection Fraction is 55-60%. There is normal LV segmental wall m otion. RIGHT VENTRICLE The right ventricle is normal size. There is normal right ventricular wall thickness. The right ventr icular systolic function is normal. ATRIA The left atrium size is normal. The right atrium size is normal. Injection of bubbles documented an i nteratrial shunt. There is no thrombus noted in the left atrial appendage. AORTIC VALVE The aortic valve is normal in structure and function. The aortic valve is trileaflet. Doppler and Col or Flow revealed no significant aortic regurgitation. There is no significant aortic valvular stenosi s. There is no aortic valvular vegetation. MITRAL VALVE The mitral valve is normal in structure and function. There is no evidence of mitral valve prolapse. There is no mitral valve stenosis. Doppler and Color-flow revealed trace mitral regurgitation. TRICUSPID VALVE The tricuspid valve is normal in structure and function. Doppler and Color Flow revealed no tricuspid valve regurgitation noted. There is no tricuspid valve prolapse or vegetation. There is no tricuspid valve stenosis. PULMONIC VALVE The pulmonary valve is normal in structure and function. Doppler and Color Flow revealed no pulmonic valvular regurgitation. There is no pulmonic valvular stenosis. GREAT VESSELS The aortic root is normal in size. The ascending aorta is normal in size. PERICARDIAL EFFUSION There is no evidence of significant pericardial effusion. Critical Notification Critical Value: No <Conclusion> The left ventricular systolic function is normal. The Ejection Fraction is 55-60%. There is normal LV segmental wall motion. Doppler and Color-flow revealed trace mitral regurgitation. There is no evidence of significant pericardial effusion. Injection of bubbles positive for interatrial shunt/PFO. Signed by : Nickolas Saenz, Electronically Approved : 02/27/2019 15:03:09
--- NOTE | 2019-02-27 17:56 | NUR ---
Discharge Note: [facility] Discharge instructions and discharge home medications reviewed with Patient and a copy given. All questions have been answered and understanding verbalized. The following instructions and handouts were given: Prescriptions for Lipitor and Aspirin with medication education, and stroke education packet. Discontinued lines and drains: 18 gauge left ac, and 18 gauge right ac, tips intact. patient tolerated well. Patient discharged to home with self care via .
== END 2019-02-27 17:31 | disposition home or self-care (01) | DRG 66 ==
LOC: 1 WEST ICU 11:00 → 6 SOUTH 02-26 12:40
PROVIDERS: ADMIT Internal Medicine; ATTEND Internal Medicine
PROC: B24BZZ4 Ultrasonography of Heart with Aorta, Transesophageal (ICD-10-PCS; principal; 2019-02-27 08:00)
DX: I63.419 Cerebral infarction due to embolism of unspecified middle cerebral artery (principal); E66.9 Obesity, unspecified; E78.5 Hyperlipidemia, unspecified; G47.33 Obstructive sleep apnea (adult) (pediatric); I11.9 Hypertensive heart disease without heart failure; J32.0 Chronic maxillary sinusitis; Z82.49 Family history of ischemic heart disease and other diseases of the circulatory system; Z68.29 Body mass index [BMI] 29.0-29.9, adult; R29.708 NIHSS score 8
CPT/HCPCS: 36415; 70551; 80053; 80061; 84439; 84443; 85025; 87040; 93306; 93312; 93320; 93325; J2001; J2704; J7120; 92526; 92610; 97116; 97530; G0378

== ENCOUNTER 2019-04-29 12:24 | Observation (INO) | payer BC ==
[2019-04-29] VITALS (7 sets, daily range): BP systolic 115–131; BP diastolic 69–79
[~2019-04-29] VITALS: Ht 177.8 cm; Wt 97.2 kg
[~2019-04-29 12:24] MED LIST changes: +ASPI325T8 PO; +ATOR20TA58 PO; +IV RINGERS,LACTATED 1000ML 1,000 ML IV SCH
[2019-04-29] MEDS ORDERED: fentaNYL PF VIAL 100 MCG/2 ML VIAL ONE (12:34)
[2019-04-29] MEDS ORDERED: MIDAZOLAM HCL/PF 2 MG/2 ML VIAL. ONE (12:34)
[2019-04-29] MEDS ORDERED: PROPOFOL 20 ML IV ONE (12:34)
[2019-04-29] MEDS ORDERED: PROPOFOL 100 ML IV ONE (12:34)
[2019-04-29 12:55] LABS: HEMOGLOBIN 15.5 g/dL (13.0-17.5); RED BLOOD COUNT 5.08 x10^6/uL (4.30-5.70); WHITE BLOOD COUNT 5.7 x10^3/uL (4.0-11.0)
[2019-04-29 13:03] LABS: CALCIUM 9.4 mg/dL (8.5-10.1); CREATININE 1.1 mg/dL (0.7-1.3); GFR 71.4; POTASSIUM 4.3 mmol/L (3.5-5.1)
[2019-04-29] MEDS ORDERED: KETAMINE HCL IN NACL, ISO-OSM 50 MG/5 ML SYRINGE ONE (13:13)
[2019-04-29] MEDS ORDERED: IODIXANOL 320 MG/ML 100 ML VIAL. ONE ×2 (13:18→14:17)
[2019-04-29] MEDS ORDERED: LIDOCAINE 1% Multi-Dose 20 ML VIAL. ONE (13:19)
[2019-04-29 13:21] LABS: PROTHROMBIN TIME PATIENT 12.3 SEC (11.7-14.0)
[2019-04-29] MEDS ORDERED: LIDOCAINE 1% Multi-Dose 20 ML VIAL. INJ ONE (13:30)
[2019-04-29] MEDS ORDERED: IODIXANOL 320 MG/ML 100 ML VIAL. IART ONE (13:30)
[2019-04-29] MEDS ORDERED: HEPARIN for IV BOLUS 10,000 UNIT/10 ML VIAL. ONE (14:21)
[2019-04-29] MEDS ORDERED: HEPARIN for IV BOLUS 10,000 UNIT/10 ML VIAL. IV ONE (14:30)
[2019-04-29] MEDS ORDERED: CLOPIDOGREL BISULFATE 75 MG TABLET PO ONE (15:00)
[2019-04-29] MEDS ORDERED: ASPIRIN 325 MG TABLET PO ONE (15:00)
[2019-04-29] MEDS ORDERED: IV 1/2 NORMAL SALINE 1,000 ML IV SCH (15:07)
[2019-04-29] MEDS ORDERED: NITROGLYCERIN SUBLINGUAL 0.4 MG BOTTLE OF 25. SL PRN (15:15)
--- NOTE | 2019-04-29 15:18 | CARD ---
MR#: [id number] Date of Study: 04/29/2019 Ordering Physician: ARTUR CH, Referring Physician: ARTUR CH Tech: SOPHIE SANCHEZ RTR APPROVED REPORT Technologist: SOPHIE SANCHEZ RTR Nurse: Thi Qiu R.N. Procedure(s) performed: Successful percutaneous closure of Patent Foramen Ovale under ESMER and Fluoros copic guidance SEDATION: ADMINISTERED BY ANESTHESIA TEAM FLUORO TIME: 9.6 MIN DOSE: 26.5 GYCM2 CONTRAST: 40CC INDICATION The indication(s) include : Cryptogenic stroke and Patent Foramen Ovale with Atrial septal aneurysm. PROCEDURE NARRATIVE After explaining the risks, benefits and alternative options, informed consent was obtained from marla ent. Patient was brought to the cardiac Vehicle Service Agent and his right groin was prepped and draped in the us ual fashion. After anesthesiology team induced deep sedation using intravenous propofol, the Transeso phageal echocardiogram probe was advanced and standard tomographic images were obtained. This confirm ed the previously described patent foramen ovale. 20 mL of 2% lidocaine was infiltrated into the skin and subcutaneous tissues of the right groin for l ocal anesthesia. Venous access was obtained in the right common femoral vein an 8 Russian sheath inser stevenson. A 6 Russian MPA 1 catheter with sideholes was advanced and under fluoroscopy and transesophageal echocardiogram guidance, the PFO was crossed. With the tip of the catheter positioned in the right up per pulmonic vein, contrast injections were performed to identify the location of interatrial septum and PFO. The catheter was then exchanged over a 0.035 inch stiff Amplatzer guidewire to a 12 Russian A mplatzer PFO delivery sheath. A 35 mm Amplatzer PFO occluder was then loaded onto the delivery catheter and was advanced through th e sheath. Under fluoroscopic and ESMER guidance, this was successfully deployed across the PFO. Complet ion study confirmed successful closure. Hemostasis in the right groin was achieved using Perclose sut ure closure device. Patient tolerated the procedure well. There were no immediate complications. Conclusion Successful percutaneous closure of patent foramen ovale with atrial septal aneurysm for cryptogenic s troke Recommendations 1. Aspirin 325 mg daily for one month followed by 81 mg daily for 6 months 2. Plavix 75 mg daily for 3 months 3. Antibiotic prophylaxis for dental procedures for 6 months Signed by : Artur Ch, Electronically Approved : 04/29/2019 15:18:19
[2019-04-30 03:00] VITALS: BP 113/64
[2019-04-30 07:00] VITALS: BP 108/76
--- NOTE | 2019-04-30 07:43 | CARD ---
MR#: [id number] Date of Study: 04/29/2019 Ordering Physician: ARTUR CH Referring Physician: Grace NIEVES: Lizeth Lucero APPROVED REPORT EXAM: Transesophageal echocardiogram with color flow Doppler. INDICATION ASD ASD Closure Reason For Test : PFO Closure PROCEDURE After obtaining informed consent, patient underwent transesophageal echo in the [facility]. Type of Sedation : General Anesthesia Sedation was administered by Luisa Decker. Sedation was achieved with Propofol intravenously. Transesophageal probe was inserted and advanced into esophagus by Artur Ch MD. The ESMER was performed without complications. Throughout the procedure, the blood pressure, pulse oximetry, cardiac rhythm, and rate were monitored . The patient tolerated the procedure without adverse effects. Recovery from general anesthesia was une ventful and vital signs were stable. LEFT VENTRICLE The left ventricle is normal size. There is normal left ventricular wall thickness. The left ventricu lar systolic function is normal. The Ejection Fraction is 55-60%. There is normal LV segmental wall m otion. Diastology not performed. ATRIA The left atrium size is normal. The right atrium size is normal. PFO noted on color doppler. There is no thrombus noted in the left atrial appendage. GREAT VESSELS The IVC is normal in size and collapses >50% with inspiration. Critical Notification Critical Value: No <Conclusion> The left ventricular systolic function is normal. The Ejection Fraction is 55-60%. There is normal LV segmental wall motion. Patent foramen ovale noted on color doppler. Amplatzer PFO occluder successfully deployed accross PFO under fluoro and ESMER guidance. Signed by : Artur Ch, Electronically Approved : 04/30/2019 07:42:51
[2019-04-30] MEDS ORDERED: ASPIRIN ENTERIC COATED 325 MG TABLET.DR. PO SCH (08:00)
[2019-04-30] MEDS ORDERED: CLOPIDOGREL BISULFATE 75 MG TABLET PO SCH (08:00)
[2019-04-30] MEDS ORDERED: LISINOPRIL 20 MG TABLET PO SCH (09:00)
[2019-04-30] MEDS ORDERED: ATORVASTATIN CALCIUM 20 MG TABLET PO SCH (09:00)
--- NOTE | 2019-04-30 10:40 | NUR ---
SS following for discharge planning. SS reviewed pt chart. Pt is from home with spouse and is currently on room air. SS will continue to follow for discharge planning.
[2019-04-30 10:53] VITALS: BP 110/70
--- NOTE | 2019-04-30 13:24 | PDOC3 ---
Discharge Summary Visit Information Date of Admission: Apr 29, 2019 Date of Discharge: Apr 30, 2019 Admitting Diagnosis: cryptogenic stroke and patent foramen ovale Final Diagnosis Cryptogenic stroke Patent foramen ovale with atrial septal aneurysm Hypertension Hyperlipidemia Brief Hospital Course Allergies Allergies Coded Allergies Type Severity Reaction Last Updated Verified No Known Drug Allergies 05/28/13 No Vital Signs Vital Signs Date Time Temp Pulse Resp B/P (MAP) Pulse Ox O2 Delivery O2 Flow Rate FiO2 04/30/19 10:53 97.6 71 18 110/70 (83) 96 Room Air 97.6 Lab Results Laboratory Tests Test 04/29/19 12:49 White Blood Count 5.7 x10^3/uL (4.0-11.0) Red Blood Count 5.08 x10^6/uL (4.30-5.70) Hemoglobin 15.5 g/dL (13.0-17.5) Hematocrit 46.0 % (39.0-53.0) Mean Corpuscular Volume 91 fL (79-100) Mean Corpuscular Hemoglobin 30 pg (25-35) Mean Corpuscular Hemoglobin Concent 34 g/dL (31-37) Red Cell Distribution Width 14.0 % (11.5-14.5) Platelet Count 239 x10^3/uL (140-400) Prothrombin Time 12.3 SEC (11.7-14.0) Prothromb Time International Ratio 0.9 (0.8-1.1) Activated Partial Thromboplast Time 27 SEC (24-38) Sodium Level 139 mmol/L (136-145) Potassium Level 4.3 mmol/L (3.5-5.1) Chloride Level 101 mmol/L (98-107) Carbon Dioxide Level 28 mmol/L (21-32) Anion Gap 10 (6-14) Blood Urea Nitrogen 13 mg/dL (8-26) Creatinine 1.1 mg/dL (0.7-1.3) Estimated GFR (Cockcroft-Gault) 71.4 Glucose Level 105 mg/dL (70-99) Calcium Level 9.4 mg/dL (8.5-10.1) Brief Hospital Course Mr. Joy is a 48 old male with recent MCA CVA and old cerebellar infarcts was diagnosed with patent foraminal ovale with atrial septal aneurysm. Since he did not have any other etiology for his embolic strokes, he underwent successful percutaneous closure of patent foramen ovale under fluoroscopic and ESMER guidance. He was hemodynamically stable during his hospital stay. Telemetry did not show any arrhythmias. His groin looked good at the time of discharge. He wi ll follow-up with our office in 1 month. Discharge Information Condition at Discharge: Stable Follow Up: Months (one) Scheduled Aspirin (Aspirin) 325 Mg Tablet, 1 TAB PO DAILY for tia for 30 Days, #30 Ref 5 Prescribed by: ELIU BUTTERFIELD on 02/27/19 105 Last Taken: Unknown Dose on 04/28/19 Last Action: Reviewed on 04/29/19 1300 by SHANELLE ARCHIBALD Atorvastatin Calcium (Atorvastatin Calcium) 20 Mg Tablet, 1 TAB PO DAILY for hld, #30 Ref 5 Prescribed by: ELIU BUTTERFIELD on 02/27/19 105 Last Taken: Unknown Dose on 04/28/19 Last Action: Continued on 04/29/191824 by LAWRENCE CALDERÓN Clopidogrel Bisulfate (Clopidogrel) 75 [facility], #30 Ref 2 Prescribed by: ARTUR CH on 04/30/19 1326 Miscellaneous Medications Lisinopril (Lisinopril) 20 Mg Tablet, 20 MG PO, (Reported) Entered as Reported by: LATANYA MA on 05/28/13 1434 Last Taken: Unknown Dose on 04/29/19 Last Action: Continued on 04/29/191824 by LAWRENCE CALDERÓN Discontinued Medications Meclizine Hcl (Meclizine Hcl) 12.5 Mg Tablet, 12.5 MG PO, (Reported) Entered as Reported by: LATANYA MA on 05/28/13 1436 Last Action: Discontinued on 04/29/19 1300 by ARTUR GARCIA MD Apr 30, 2019 13:24
[2019-04-30] MEDS ORDERED: CLOP75TA PO (13:26)
--- NOTE | 2019-04-30 14:03 | NUR ---
Discharge: Teaching verbal and written. Reviewed medications, follow-up, PFO, ect. Patient and verbalized understanding. PFO card, prescription for Plavix and not to return to work given to patient. All belongings with patient. IV removed without complications, catheter tip in-tact. Patient ambulated off of unit accompanied by nurse and .
== END 2019-04-30 14:00 | disposition home or self-care (01) ==
LOC: CARD 12:24 → 2 SOUTH 14:26
PROVIDERS: ADMIT Internal Medicine Cardiovascular Disease; ATTEND Internal Medicine Cardiovascular Disease
DX: I63.9 Cerebral infarction, unspecified (principal); I10 Essential (primary) hypertension; E78.5 Hyperlipidemia, unspecified; Z98.890 Other specified postprocedural states
CPT/HCPCS: 36415; 80048; 85027; 85610; 85730; 93312; 93325; 93580; 96365; 96375; C1760; C1769; C1817; C1887; C1892; G0269; G0378; G0379; J0696; J1644; J2250; J2704; J3010; J7120; Q9967; C1771

== ENCOUNTER → 2020-02-24 | Outpatient (CLI) | payer BC ==
[~2020-02-24] MED LIST changes: +CLOP75TA PO; -IV RINGERS,LACTATED 1000ML 1,000 ML IV SCH; -MECL12.52 PO; +MECL12.573 PO
--- NOTE | 2020-02-24 16:08 | CARD ---
MR#: [id number] Date of Study: 02/24/2020 Ordering Physician: ARTUR SAENZ, Referring Physician: ARTUR SAENZ, Tech: Lizeth Lucero APPROVED REPORT EXAM: Two-dimensional echocardiogram with contrast. Other Information Quality : AverageHR: 69bpm INDICATION Patent Foramen Ovale Echo Enhancing Agent Indication: Rule Out Septal Defect Agent/Amount Used: Agitated Saline 10mL RISK FACTORS Hypertension 2D DIMENSIONS RVDd3.2 (2.9-3.5cm)Left Atrium(2D)3.5 (1.6-4.0cm) IVSd1.3 (0.7-1.1cm)Aortic Root(2D)3.5 (2.0-3.7cm) LVDd4.7 (3.9-5.9cm)LVOT Diameter2.3 (1.8-2.4cm) PWd1.2 (0.7-1.1cm)LVDs3.2 (2.5-4.0cm) FS (%) 31.1 %SV60.2 ml LVEF(%)58.9 (>50%) Aortic Valve AoV Peak Guille.109.1cm/sAoV VTI22.6cm AO Peak GR.4.8mmHgLVOT Peak Guille.108.5cm/s LVOT VTI 23.97cmAO Mean GR.2mmHg LYN (VMAX)2.32fm7PAK (VTI)4.22cm2 Mitral Valve MV E Wbtnlfbb34.0cm/sMV DECEL [id number] MV A Nmudwfcy53.8cm/sMV E Mean Gr.1mmHg MV [id number]/A Ratio1.1 MVA (PHT)3.45cm2 TDI E/Lateral E'4.9E/Medial E'8.2 Pulmonary Valve PV Peak Skdabdnd82.3cm/sPV Peak Grad.3mmHg Tricuspid Valve RAP [id number] Pulmonary Vein S1 Abskgnbw54.2cm/sD2 Fmgayfjz88.2cm/s PVa [id number] LEFT VENTRICLE The left ventricle is normal size. There is mild to moderate concentric left ventricular hypertrophy. The left ventricular systolic function is normal. The Ejection Fraction is 55%. There is normal LV s egmental wall motion. RIGHT VENTRICLE The right ventricle is normal size. There is normal right ventricular wall thickness. The right ventr icular systolic function is normal. ATRIA The left atrium size is normal. The right atrium size is normal. Amplatzer PFO occluder seen [place]ev[place] accross interatrial septum. Doppler and Bubble study negative for any residual shunt. AORTIC VALVE The aortic valve is normal in structure and function. Doppler and Color Flow revealed no significant aortic regurgitation. There is no significant aortic valvular stenosis. Calculated aortic valve area is 4 cm2 with maximum pressure gradient of 5 mmHg and mean pressure gradient of 3 mmHg. MITRAL VALVE The mitral valve is normal in structure and function. There is no evidence of mitral valve prolapse. There is no mitral valve stenosis. Doppler and Color-flow revealed trace mitral regurgitation. TRICUSPID VALVE The tricuspid valve is normal in structure and function. Doppler and Color Flow revealed no tricuspid valve regurgitation noted. There is no tricuspid valve stenosis. PULMONIC VALVE The pulmonic valve is not well visualized. Doppler and Color Flow revealed trace pulmonic valvular re gurgitation. GREAT VESSELS The aortic root is normal in size. The ascending aorta is normal in size. The IVC is normal in size a nd collapses >50% with inspiration. PERICARDIAL EFFUSION There is no evidence of significant pericardial effusion. Critical Notification Critical Value: No <Conclusion> The left ventricular systolic function is normal. The Ejection Fraction is 55%. There is normal LV segmental wall motion. Amplatzer PFO occluder seen well seated accross interatrial septum. Doppler and Bubble study negative for any residual shunt. Trace mitral regurgitation. There is no evidence of significant pericardial effusion. Signed by : Artur Saenz, Electronically Approved : 02/24/2020 16:07:56
== END | disposition home or self-care (01) ==
LOC: ECHO 08:36
PROVIDERS: ATTEND Internal Medicine Cardiovascular Disease
DX: Q21.1 Atrial septal defect (principal); I51.7 Cardiomegaly
CPT/HCPCS: 93306

== ENCOUNTER → 2021-03-02 | Outpatient (CLI) | payer BC ==
[~2021-03-02] MED LIST changes: -LISI-334 PO; +LISI20TA18 PO; -MECL12.573 PO; +MECL12.582 PO
--- NOTE | 2021-03-02 13:59 | CARD ---
MR#: [id number] Date of Study: 03/02/2021 Ordering Physician: ARTUR CH, Referring Physician: ARTUR CH Tech: Jaycee Edmond [facility] APPROVED REPORT EXAM: Two-dimensional and M-mode echocardiogram with Doppler and color Doppler. Other Information Quality : AverageHR: 68bpm Rhythm : NSR INDICATION Hypertension/HCVD RISK FACTORS Hypertension 2D DIMENSIONS RVDd3.5 (2.9-3.5cm)Left Atrium(2D)3.8 (1.6-4.0cm) IVSd1.1 (0.7-1.1cm)Aortic Root(2D)3.8 (2.0-3.7cm) LVDd4.4 (3.9-5.9cm)LVOT Diameter2.6 (1.8-2.4cm) PWd1.1 (0.7-1.1cm)LVDs2.9 (2.5-4.0cm) FS (%) 34.3 %SV55.0 ml LVEF(%)63.6 (>50%) Aortic Valve AoV Peak Guille.101.8cm/sAoV VTI22.8cm AO Peak GR.4.1mmHgLVOT Peak Guille.111.8cm/s AO Mean GR.2mmHgAVA (VMAX)5.64cm2 Pulmonary Valve PV Peak Qmsvjoea68.3cm/s Tricuspid Valve TR P. Xlzrehow391pi/sTR Peak Gr.21mmHg LEFT VENTRICLE The left ventricle is normal size. There is borderline to mild concentric left ventricular hypertroph y. The left ventricular systolic function is normal. Estimated ejection fraction 60-65%. There is no rmal LV segmental wall motion. RIGHT VENTRICLE The right ventricle is normal size. There is normal right ventricular wall thickness. The right ventr icular systolic function is normal. ATRIA The left atrium size is normal. The right atrium size is normal. The interatrial septum is intact wit h no evidence for an atrial septal defect or patent foramen ovale as noted on 2-D or Doppler imaging. AORTIC VALVE The aortic valve is normal in structure and function. Doppler and Color Flow revealed no significant aortic regurgitation. There is no significant aortic valvular stenosis. MITRAL VALVE The mitral valve is normal in structure and function. There is no evidence of mitral valve prolapse. There is no mitral valve stenosis. Doppler and Color-flow revealed mild mitral regurgitation. TRICUSPID VALVE The tricuspid valve is normal in structure and function. Doppler and Color Flow revealed trace tricus pid regurgitation. Estimated PAP 25 mmHg. There is no tricuspid valve stenosis. PULMONIC VALVE The pulmonary valve is normal in structure and function. Doppler and Color Flow revealed mild pulmoni c valvular regurgitation. GREAT VESSELS The aortic root is normal in size. The ascending aorta is normal in size. The IVC is normal in size a nd collapses >50% with inspiration. PERICARDIAL EFFUSION There is no evidence of significant pericardial effusion. Critical Notification Critical Value: No <Conclusion> The left ventricular systolic function is normal. Estimated ejection fraction 60-65%. There is normal LV segmental wall motion. Mild mitral regurgitation. Trace tricuspid regurgitation. Estimated PAP 25 mmHg. There is no evidence of significant pericardial effusion. Signed by : Artur Ch, Electronically Approved : 03/02/2021 13:33:59
== END ==
LOC: ECHO 07:45
PROVIDERS: ATTEND Internal Medicine Cardiovascular Disease
DX: I08.8 Other rheumatic multiple valve diseases (principal); Q21.1 Atrial septal defect
CPT/HCPCS: 93306